=== PATIENT | female | born 1960 | race Caucasian/White ===

== ENCOUNTER 2016-04-08 08:04 | Day surgery (SDC) | payer BC ==
[2016-04-04 08:14] VITALS: BMI 22.3
[~2016-04-08 08:04] MED LIST: LACTATED RINGERS 1,000 ML IV SCH
[2016-04-08 08:30] VITALS: RESP 18; TEMP 97.7
[2016-04-08] MEDS ORDERED: LACTATED RINGERS 1,000 ML IV ONE (08:30)
[2016-04-08] MEDS ORDERED: LIDOCAINE 1% 20 ML VIAL (10MG/ML) FOR IV START INTRADERMA ONE (08:30)
[2016-04-08] MEDS ORDERED: LIDOCAINE 1% INJ 10MG/ML (20 ML MDV) ONE (08:55)
[2016-04-08] MEDS ORDERED: PROPOFOL 10 MG/ML 20 ML VIAL IV ONE (08:55)
--- NOTE | 2016-04-08 09:21 | P.PCN ---
Date of Procedure: 04/08/16 Preoperative Diagnosis: Constipation Postoperative Diagnosis: Tortuous redundant sigmoid colon, internal hemorrhoids Procedure(s) Performed: Colonoscopy Anesthesia: MAC Surgeon: Leyla Weiss Estimated Blood Loss (ml): 0 IV fluids (ml): 400 Pathology: none sent Condition: stable Disposition: PACU Indications for Procedure: Constipation, last scope approximately 11 years ago Operative Findings: Tortuous sigmoid colon, internal hemorrhoids, possible beginning of some small diverticuli Description of Procedure: Patient was taken to the endoscopy suite and following sedation rectal exam was performed patient was noted to have good sphincter tone no masses. Colonoscope was passed through the anus into the rectum was passed up through the sigmoid colon up to splenic flexure transverse colon hepatic colon right colon down to the area of the cecum. The scope was withdrawn being careful to evaluate the mucosa. Approximately 8 minutes were taken to withdraw the scope from the cecum to the rectum. No lesions of concern were noted in the cecum or right colon. No lesions of concern were noted in the transverse colon. No lesions of concern were noted in the left colon. The sigmoid colon was tortuous and redundant. Possible beginning of some small diverticuli were noted. The scope was withdrawn into the rectum where it was retroflexed internal hemorrhoids identified. Impression/plan: 1. Internal hemorrhoids 2. Tortuous redundant sigmoid colon 3. Possible beginning of some small diverticuli Plan: 1. Conservative management line 2. Repeat scope in 10 years
--- NOTE | 2016-04-08 09:21 | P.DS ---
Providers Attending physician: Leyla Weiss Primary care physician: Hazel Parker Plan - Discharge Summary Discharge Medication List Aspirin [Adult Low Dose Aspirin EC] 81 mg PO DAILY 03/15/15 [History] Ibuprofen [Motrin] 800 mg PO DAILY PRN 03/15/15 [History] LORazepam [Ativan] 0.5 mg PO BID 03/15/15 [History] Levothyroxine Sodium [Levoxyl] 150 mcg PO DAILY 03/15/15 [History] lamoTRIgine [LaMICtal] 25 mg PO QID 03/15/15 [History] Atorvastatin [Lipitor] 20 mg PO DAILY 04/04/16 [History] Multivitamins, Thera [Multivitamin] 1 tab PO DAILY 04/04/16 [History] Activity/Diet/Wound Care/Special Instructions: Repeat scope in 10 years unless patient has symptoms of something before Discharge Disposition: HOME SELF-CARE
[2016-04-08 09:44] VITALS: BP 109/71; PULSE 59
== END 2016-04-08 10:04 | disposition home or self-care (01) ==
LOC: ORWHC2ENDO 08:04
PROVIDERS: ATTEND Surgery
DX: Q43.8 Other specified congenital malformations of intestine (principal); K64.8 Other hemorrhoids; E03.9 Hypothyroidism, unspecified; E78.5 Hyperlipidemia, unspecified; G43.909 Migraine, unspecified, not intractable, without status migrainosus; F41.9 Anxiety disorder, unspecified; Z79.1 Long term (current) use of non-steroidal anti-inflammatories (NSAID); Z79.82 Long term (current) use of aspirin; Z79.899 Other long term (current) drug therapy
CPT/HCPCS: 45378; J2001; J2704; 99153

== ENCOUNTER → 2017-02-23 | Outpatient (CLI) | payer OTHER ==
--- NOTE | 2017-02-25 10:08 | MM ---
Reason for exam: screening (asymptomatic). Last mammogram was performed 1 year ago. History: Patient is postmenopausal and has history of other cancer at age 54. Physical Findings: A clinical breast exam by your physician is recommended on an annual basis and results should be correlated with mammographic findings. MG Screening Mammo w CAD Bilateral CC and MLO view(s) were taken. Prior study comparison: March 06, 2016, bilateral MG screening mammo w CAD. March 03, 2015, bilateral MG screening mammo w CAD. The breast tissue is heterogeneously dense. This may lower the sensitivity of mammography. No significant changes when compared with prior studies. ASSESSMENT: Negative, BI-RAD 1 RECOMMENDATION: Routine screening mammogram of both breasts in 1 year.
== END | disposition home or self-care (01) ==
LOC: RADMAMWWP 09:10
PROVIDERS: ATTEND Obstetrics & Gynecology
DX: Z12.31 Encounter for screening mammogram for malignant neoplasm of breast (principal)

== ENCOUNTER → 2017-12-04 | Outpatient (CLI) | payer OTHER ==
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
== END | disposition home or self-care (01) ==
LOC: NEUROMAIN 07:49
PROVIDERS: ATTEND Internal Medicine
DX: R56.9 Unspecified convulsions (principal)
CPT/HCPCS: 95819

== ENCOUNTER → 2018-03-16 | Outpatient (CLI) | payer OTHER ==
--- NOTE | 2018-03-16 15:50 | BD ---
EXAMINATION TYPE: Axial Bone Density DATE OF EXAM: 03/16/2018 COMPARISON: NONE CLINICAL HISTORY: Osteoporosis screening. Postmenopausal female. Height: 5'8 Weight: 159 FRAX RISK QUESTIONS: Secondary Osteoporosis: 3. Menopause before 45: y RISK FACTORS HISTORY OF: Postmenopausal woman: y MEDICATIONS: Thyroid Medications: Which medication: Levothyroxine How Lon years Additional Medications: anxiety, anti seizure Additional History: EXAM MEASUREMENTS: Bone mineral densitometry was performed using the MPSTOR System. Bone mineral density as measured about the Lumbar spine is: ----- L1-L4(G/cm2): 1.225 T Score Values are as follows: ----- L2: -0.6 ----- L3: -0.4 ----- L4: 2.3 ----- L1-L4:0.4 Bone mineral density about the R hip (g/cm2): 1.024 Bone mineral density about the L hip (g/cm2): 1.017 T Score values are as follows: -----R Neck: -0.1 -----L Neck: -0.2 -----R Total: 0.6 -----L Total:0.5 IMPRESSION: Normal (Values between +1 and -1 indicate normal bone mass). Consider repeating this study in 5 year s or sooner if there is some new clinical indication. NOTE: T-SCORE=SD OF THE YOUNG ADULT MEAN.
--- NOTE | 2018-03-17 12:40 | MM ---
Reason for exam: screening (asymptomatic). Last mammogram was performed 1 year and 1 month ago. History: Patient is postmenopausal and has history of other cancer at age 54. Physical Findings: A clinical breast exam by your physician is recommended on an annual basis and results should be correlated with mammographic findings. MG Screening Mammo w CAD Bilateral CC and MLO view(s) were taken. Prior study comparison: February 23, 2017, bilateral MG screening mammo w CAD. March 06, 2016, bilateral MG screening mammo w CAD. The breast tissue is heterogeneously dense. This may lower the sensitivity of mammography. Finding: There are typically benign round, regional calcifications in the left breast. There is no discrete abnormality. Increase in number of calcifications since February 23, 2017 and March 06, 2016. ASSESSMENT: Benign, BI-RAD 2 RECOMMENDATION: Routine screening mammogram of both breasts in 1 year.
== END | disposition home or self-care (01) ==
LOC: RADMAMWWP 14:45
PROVIDERS: ATTEND Obstetrics & Gynecology
DX: Z12.31 Encounter for screening mammogram for malignant neoplasm of breast (principal); Z13.820 Encounter for screening for osteoporosis
CPT/HCPCS: 77067; 77080

== ENCOUNTER → 2019-03-17 | Outpatient (CLI) | payer OTHER ==
--- NOTE | 2019-03-17 14:12 | MM ---
Reason for exam: screening (asymptomatic). Last mammogram was performed 1 year ago. History: Patient is postmenopausal and has history of other cancer at age 54. Physical Findings: A clinical breast exam by your physician is recommended on an annual basis and results should be correlated with mammographic findings. MG Screening Mammo w CAD Bilateral CC and MLO view(s) were taken. Prior study comparison: March 16, 2018, bilateral MG screening mammo w CAD. February 23, 2017, bilateral MG screening mammo w CAD. The breast tissue is heterogeneously dense. This may lower the sensitivity of mammography. No suspicious abnormality. No significant changes when compared with prior studies. ASSESSMENT: Negative, BI-RAD 1 RECOMMENDATION: Routine screening mammogram of both breasts in 1 year.
== END | disposition home or self-care (01) ==
LOC: RADMAMWWP 06:49
PROVIDERS: ATTEND Obstetrics & Gynecology
DX: Z12.31 Encounter for screening mammogram for malignant neoplasm of breast (principal)
CPT/HCPCS: 77067

== ENCOUNTER → 2020-05-30 | Outpatient (CLI) | payer OTHER ==
--- NOTE | 2020-05-31 13:35 | MM ---
Reason for exam: screening (asymptomatic). Last mammogram was performed 1 year and 2 months ago. History: Patient is postmenopausal and has history of other cancer at age 54. Physical Findings: A clinical breast exam by your physician is recommended on an annual basis and results should be correlated with mammographic findings. MG Screening Mammo w CAD Bilateral CC and MLO view(s) were taken. Prior study comparison: March 17, 2019, bilateral MG screening mammo w CAD. March 16, 2018, bilateral MG screening mammo w CAD. The breast tissue is heterogeneously dense. This may lower the sensitivity of mammography. There are benign appearing round calcifications bilaterally. There is no discrete abnormality. ASSESSMENT: Benign, BI-RAD 2 RECOMMENDATION: Routine screening mammogram of both breasts in 1 year.
== END ==
LOC: RADMAMWWP 14:42
PROVIDERS: ATTEND Obstetrics & Gynecology
DX: Z12.31 Encounter for screening mammogram for malignant neoplasm of breast (principal); Z78.0 Asymptomatic menopausal state
CPT/HCPCS: 77067

== ENCOUNTER → 2021-06-13 | Outpatient (CLI) | payer OTHER ==
--- NOTE | 2021-06-18 12:15 | MM ---
Reason for exam: screening (asymptomatic). Last mammogram was performed 1 year ago. History: Patient is postmenopausal and has history of other cancer at age 54. Physical Findings: A clinical breast exam by your physician is recommended on an annual basis and results should be correlated with mammographic findings. MG 3D Screening Mammo W/Cad Bilateral CC and MLO view(s) were taken. Prior study comparison: May 30, 2020, bilateral MG screening mammo w CAD. March 17, 2019, bilateral MG screening mammo w CAD. The breast tissue is heterogeneously dense. This may lower the sensitivity of mammography. Benign round calcifications medial left breast are unchanged. No significant changes when compared with prior studies. ASSESSMENT: Benign, BI-RAD 2 RECOMMENDATION: Routine screening mammogram of both breasts in 1 year.
== END | disposition home or self-care (01) ==
LOC: RADMAMWWP 16:36
PROVIDERS: ATTEND Obstetrics & Gynecology
DX: Z12.31 Encounter for screening mammogram for malignant neoplasm of breast (principal)
CPT/HCPCS: 77063; 77067

== ENCOUNTER → 2022-06-17 | Outpatient (CLI) | payer OTHER ==
--- NOTE | 2022-06-17 15:16 | BD ---
EXAMINATION TYPE: Axial Bone Density DATE OF EXAM: 06/17/2022 CLINICAL HISTORY: 62 years old Female. ICD-10 CODE: M8588 OTHER DISORDER OF BONE Height: 67 Weight: FRAX RISK QUESTIONS: Alcohol (3 or more units per day): no Family History (Parent hip fracture): no Glucocorticoids (More than 3mos): no (Ex: prednisone, prednisolone, methylprednisolone, dexamethasone, and hydrocortisone). History of Fracture in Adulthood: no Secondary Osteoporosis: 1. Type 1 Diabetes: no 2. Hyperthyroidism: no 3. Menopause before 45: no 4. Malnutrition: no 5. Chronic liver disease: no Rheumatoid Arthritis: no Current Tobacco Use: no RISK FACTORS HISTORY OF: Surgery to Spine/Hip(right/left)/Wrist (right/left): no Family History of Osteoporosis: no Active: yes Diet low in dairy products/other sources of calcium: no Postmenopausal woman: yes Lost more than 2 inches in height since high school: no MEDICATIONS: Thyroid Medications: levothyroxine How Lon years Additional History: EXAM MEASUREMENTS: Bone mineral densitometry was performed using the INAPPIN System. Bone mineral density as measured about the Lumbar spine is: ----- L1-L4(G/cm2): 1.159 T Score Values are as follows: ----- L1: -1.1 ----- L2: -1.4 ----- L3: -1.3 ----- L4: 2.3 ----- L1-L4: -0.2 Z Score Values are as follows: ----- L1: 0.1 ----- L2: -0.3 ----- L3: -0.1 ----- L4: 3.4 ----- L1-L4: 1.0 Bone mineral density has: decreased -5.4 % since study of: 03.16.2018 Bone mineral density about the R hip (g/cm2): 1.063 Bone mineral density about the L hip (g/cm2): 1.050 T Score values are as follows: -----R Neck: -0.3 -----L Neck: -0.5 -----R Total: 0.4 -----L Total: 0.3 Z Score values are as follows: -----R Neck: 0.8 -----L Neck: 0.6 -----R Total: 1.3 -----L Total: 1.2 Bone mineral density has: decreased -2.2 % since study of: 2018 FRAX%s: The graph provided illustrates a 7.2% chance for a major osteoporotic fx and a 0.3% chance fo r the hips probability for fx in 10 years time. IMPRESSION: Normal (Values between +1 and -1 indicate normal bone mass). Consider repeating this study in 5 year s or sooner if there is some new clinical indication. NOTE: T-SCORE=SD OF THE YOUNG ADULT MEAN.
--- NOTE | 2022-06-18 09:17 | MM ---
Reason for Exam: Screening (asymptomatic). Last screening mammogram was performed 12 month(s) ago. Patient History: Menarche at age 11. First Full-Term at age 18. Postmenopausal. Other cancer, age 54. Risk Values: Padmini 5 year model risk: 1.4%. NCI Lifetime model risk: 5.8%. Prior Study Comparison: 03/06/2016 Bilateral Screening Mammogram, [facility]. 02/23/2017 Bilateral Screening Mammogram, [facility]. 03/16/2018 Bilateral Screening Mammogram, [facility]. 03/17/2019 Bilateral Screening Mammogram, [facility]. 05/30/2020 Bilateral Screening Mammogram, [facility]. 06/13/2021 Bilateral Screening Mammogram, [facility]. Tissue Density: The breast tissue is heterogeneously dense. This may lower the sensitivity of mammography. Findings: Analyzed By CAD. There are benign-appearing rounded calcifications redemonstrated scattered throughout the left breast. There is no suspicious new group of microcalcifications or new suspicious mass in either breast. Overall Assessment: Benign, BI-RAD 2 Management: Screening Mammogram of both breasts in 1 year. A clinical breast exam by your physician is recommended on an annual basis and results should be correlated with mammographic findings. Electronically signed and approved by: Shay Starks M.D.
== END | disposition home or self-care (01) ==
LOC: RADMAMWWP 13:38
PROVIDERS: ATTEND Obstetrics & Gynecology
DX: Z12.31 Encounter for screening mammogram for malignant neoplasm of breast (principal); M85.88 Other specified disorders of bone density and structure, other site; Z78.0 Asymptomatic menopausal state
CPT/HCPCS: 77063; 77067; 77080

== ENCOUNTER → 2023-07-15 | Outpatient (CLI) | payer MEDICARE ==
--- NOTE | 2023-07-15 12:29 | MM ---
Reason for Exam: Screening (asymptomatic). Last mammogram was performed 1 year(s) and 1 month(s) ago. Patient History: Menarche at age 11. First Full-Term at age 18. Postmenopausal. Other cancer, age 54. Risk Values: Padmini 5 year model risk: 1.5%. NCI Lifetime model risk: 5.6%. Prior Study Comparison: 05/30/2020 Bilateral Screening Mammogram, [facility]. 06/13/2021 Bilateral Screening Mammogram, [facility]. 06/17/2022 Bilateral MG 3D screening mammo w/cad, [facility]. Tissue Density: The breasts are heterogeneously dense, which may obscure small masses. Findings: Analyzed By CAD. The pattern is symmetrical. Pattern is stable. Benign calcifications are present bilaterally. No significant interval change is evident. No suspicious groups of microcalcifications, spiculated or lobular masses, architectural distortion or other secondary signs of malignancy are mammographically apparent. Overall Assessment: Benign, BI-RAD 2 Management: Screening Mammogram of both breasts in 1 year. A negative mammogram report should not preclude additional follow up of suspicious palpable abnormalities. Patient should continue monthly self breast exam. A clinical breast exam by your physician is recommended on an annual basis and results should be correlated with mammographic findings. Note on Padmini scores and lifetime risk: 1. A Padmini score greater than 3% is considered moderate risk. If this is the case, consider specialist referral to assess eligibility for a risk reducing agent. 2. If overall lifetime risk for the development of breast cancer is 20% or higher, the patient may qualify for future screening with alternating mammogram and breast MRI. Electronically signed and approved by: Dion Yi D.O. Radiologis
== END | disposition home or self-care (01) ==
LOC: RADMAMWWP 09:51
PROVIDERS: ATTEND Internal Medicine
DX: Z12.31 Encounter for screening mammogram for malignant neoplasm of breast (principal); Z78.0 Asymptomatic menopausal state
CPT/HCPCS: 77067

== ENCOUNTER 2024-06-09 07:55 | Day surgery (SDC) | payer MEDICARE ==
[2024-06-08 11:06] VITALS: BMI 26.1
[2024-06-09] MEDS ORDERED: LIDOCAINE 1% (10MG/ML) FOR IV START INTRADERMA PRN (08:17)
[2024-06-09 08:28] VITALS: RESP 16; TEMP 97.5
[2024-06-09] MEDS: LACTATED RINGERS 1,000 ML IV SCH (08:36)
--- NOTE | 2024-06-09 08:39 | P.GSHP ---
History of Present Illness H&P Date: 06/09/24 CHIEF COMPLAINT: Dysphagia and colon screen HISTORY OF PRESENT ILLNESS: The patient is a 64-year-old male who presents with dysphagia and need for colon screen. Upper and lower endoscopy were offered for further evaluation and management. PAST MEDICAL HISTORY: Please see list. PAST SURGICAL HISTORY: Please see list. MEDICATIONS: Please see list. ALLERGIES: Please see list. SOCIAL HISTORY: No illicit drug use FAMILY HISTORY: No reports of Crohn disease or ulcerative colitis. REVIEW OF ORGAN SYSTEMS: CONSTITUTIONAL: No reports of fevers or chills. GI: Denies any blood in stools or constipation. PHYSICAL EXAM: VITAL SIGNS: Stable GENERAL: Well-developed pleasant in no acute distress. HEENT: No scleral icterus. Extraocular movements grossly intact. Moist buccal mucosa. NECK: Supple without lymphadenopathy. CHEST: Unlabored respirations. Equal bilateral excursions. CARDIOVASCULAR: Regular rate and rhythm. Distal 2+ pulses. ABDOMEN: Soft, nondistended. MUSCULOSKELETAL: No clubbing, cyanosis, or edema. ASSESSMENT: 1. Dysphagia 2. Colon screen. PLAN: 1. Recommend proceeding with an upper and lower endoscopy Past Medical History Past Medical History: Cancer, GERD/Reflux, Hyperlipidemia, Thyroid Disorder Additional Past Medical History / Comment(s): constipated with pain lower rt abdominal area, migraines, hx skin cancer History of Any Multi-Drug Resistant Organisms: None Reported Additional Past Surgical History / Comment(s): skin cancer removed left arm and back, eyelid surgery, stoney cataract Past Anesthesia/Blood Transfusion Reactions: No Reported Reaction Additional Past Anesthesia/Blood Transfusion Reaction / Comment(s): no hx blood transfusion Smoking Status: Never smoker - Past Family History Mother Family Medical History: Cancer Additional Family Medical History / Comment(s): lymphoma Medications and Allergies Home Medications Medication Instructions Recorded Confirmed Type Aspirin [Adult Low Dose Aspirin EC] 81 mg PO DAILY 03/15/15 06/09/24 History Ibuprofen [Motrin] 800 mg PO DAILY PRN 03/15/15 06/09/24 History LORazepam [Ativan] 1 mg PO BID 03/15/15 06/09/24 History Levothyroxine Sodium [Levoxyl] 125 mcg PO QAM 03/15/15 06/09/24 History lamoTRIgine [LaMICtal] 100 mg PO BID 03/15/15 06/09/24 History Multivitamins, Thera [Multivitamin] 1 tab PO DAILY 04/04/16 06/09/24 History Baclofen [Lioresal] 10 mg PO HS 06/08/24 06/09/24 History Sertraline HCl [Zoloft] 50 mg PO QAM 06/08/24 06/09/24 History Allergies Allergy/AdvReac Type Severity Reaction Status Date / Time No Known Allergies Allergy Verified 06/08/24 10:54 Surgical - Exam Vital Signs Temp Pulse Resp BP Pulse Ox 97.5 F L 82 16 125/65 98 06/09/24 08:20 06/09/24 08:20 06/09/24 08:20 06/09/24 08:20 06/09/24 08:20
[2024-06-09] MEDS ORDERED: PROPOFOL 10 MG/ML 20 ML VIAL IV ONE (08:45)
--- NOTE | 2024-06-09 08:49 | P.HPADDEND ---
H&P Addendum H&P Addendum Date: 06/09/24 Patient currently denies dysphagia. Will proceed with colonoscopy only.
[2024-06-09 09:23] VITALS: BP 103/69; PULSE 61
--- NOTE | 2024-06-09 09:42 | P.PCN ---
Date of Procedure: 06/09/24 Description of Procedure: PREOPERATIVE DIAGNOSIS: Colonoscopy screening. POSTOPERATIVE DIAGNOSIS: Colonoscopy screening. Diverticulosis, scattered. OPERATION: Colonoscopy to the cecum, ileocecal valve and appendiceal orifice. SURGEON: Marixa Perez MD. ANESTHESIA: MAC. INDICATIONS: The patient is a 64-year-old female who presents for colonoscopy screening. Benefits and risks were described and informed consent was obtained. DESCRIPTION OF PROCEDURE: The patient had undergone GoLytely prep and lactulose. The patient had been brought into the operating room and laid in the left lateral decubitus position. After adequate intravenous sedation, the rectum was examined with 2% lidocaine jelly. No external hemorrhoids were encountered. The rectal tone was within normal limits. No lesions were palpated in the rectal vault. An Olympus colonoscope was advanced until the cecum, ileocecal valve and appendiceal orifice were clearly viewed. The prep was fair. Few scattered diverticulosis was encountered. No colonic polyps were found. No evidence of focal colitis was found. Retroflexion of the scope demonstrated grade 2 internal hemorrhoids without active bleeding or inflammation. The colon was desufflated. The patient had tolerated the procedure well. Withdrawal time was over 6 minutes. FINDINGS: Aronchick preparation quality scale 3 (1-5) Internal hemorrhoids, grade 2 External prolapsed hemorrhoids, grade 2 No arteriovenous malformations. No adenomatous polyps. No focal colitis. RECOMMENDATIONS: Lower endoscopy in 5 years2029 Plan - Discharge Summary Discharge Rx Participant: No New Discharge Prescriptions: Continue LORazepam [Ativan] 1 mg PO BID lamoTRIgine [LaMICtal] 100 mg PO BID Levothyroxine Sodium [Levoxyl] 125 mcg PO QAM Ibuprofen [Motrin] 800 mg PO DAILY PRN PRN Reason: Pain Aspirin [Adult Low Dose Aspirin EC] 81 mg PO DAILY Multivitamins, Thera [Multivitamin (formulary)] 1 tab PO DAILY Sertraline HCl [Zoloft] 50 mg PO QAM Baclofen [Lioresal] 10 mg PO HS Discharge Medication List Aspirin [Adult Low Dose Aspirin EC] 81 mg PO DAILY 03/15/15 [History] Ibuprofen [Motrin] 800 mg PO DAILY PRN 03/15/15 [History] LORazepam [Ativan] 1 mg PO BID 03/15/15 [History] Levothyroxine Sodium [Levoxyl] 125 mcg PO QAM 03/15/15 [History] lamoTRIgine [LaMICtal] 100 mg PO BID 03/15/15 [History] Multivitamins, Thera [Multivitamin (formulary)] 1 tab PO DAILY 04/04/16 [History] Baclofen [Lioresal] 10 mg PO HS 06/08/24 [History] Sertraline HCl [Zoloft] 50 mg PO QAM 06/08/24 [History] Follow up Appointment(s)/Referral(s): Marixa Perez MD [STAFF PHYSICIAN] - As Needed Patient Instructions/Handouts: Constipation (DC), Diverticulosis Diet (GEN) Activity/Diet/Wound Care/Special Instructions: Repeat colonoscopy 5 years, 2030 Discharge Disposition: HOME SELF-CARE
== END 2024-06-09 09:58 | disposition home or self-care (01) ==
LOC: ORWHC2ENDO 07:55
PROVIDERS: ATTEND Surgery Plastic and Reconstructive Surgery
DX: Z12.11 Encounter for screening for malignant neoplasm of colon (principal); K57.30 Diverticulosis of large intestine without perforation or abscess without bleeding; K21.9 Gastro-esophageal reflux disease without esophagitis; K64.1 Second degree hemorrhoids; E78.5 Hyperlipidemia, unspecified; E07.9 Disorder of thyroid, unspecified; F41.9 Anxiety disorder, unspecified; G43.909 Migraine, unspecified, not intractable, without status migrainosus; Z85.828 Personal history of other malignant neoplasm of skin; Z79.890 Hormone replacement therapy; Z79.1 Long term (current) use of non-steroidal anti-inflammatories (NSAID); Z79.82 Long term (current) use of aspirin; Z79.899 Other long term (current) drug therapy
CPT/HCPCS: J2704; G0121; 45378

== ENCOUNTER → 2024-08-19 | Outpatient (CLI) | payer MEDICARE ==
--- NOTE | 2024-08-19 12:40 | MM ---
Reason for Exam: Screening (asymptomatic). Last mammogram was performed 1 year(s) and 1 month(s) ago. Patient History: Menarche at age 11. First Full-Term at age 18. Postmenopausal. Other cancer, age 54. Risk Values: Padmini 5 year model risk: 1.5%. NCI Lifetime model risk: 5.4%. Prior Study Comparison: 03/16/2018 Bilateral Screening Mammogram, [facility]. 03/17/2019 Bilateral Screening Mammogram, [facility]. 05/30/2020 Bilateral Screening Mammogram, [facility]. 06/13/2021 Bilateral Screening Mammogram, [facility]. 06/17/2022 Bilateral MG 3D screening mammo w/cad, [facility]. 07/15/2023 Bilateral MG screening mammo w CAD, [facility]. Tissue Density: The breasts are heterogeneously dense, which may obscure small masses. Findings: Analyzed By CAD. Right breast: There is no suspicious group of microcalcifications or new suspicious mass. Left breast: There is no suspicious group of microcalcifications or new suspicious mass. Overall Assessment: Negative, BI-RAD 1 Management: Screening Mammogram of both breasts in [address] [facility] will attempt to contact patient to return for supplemental views and ultrasound if indicated. Patient should continue monthly self-breast exams. A clinical breast exam by your physician is recommended on an annual basis. This exam should not preclude additional follow-up of suspicious palpable abnormalities. Note on Padmini scores and lifetime risk: 1. A Padmini score greater than 3% is considered moderate risk. If this is the case, consider specialist referral to assess eligibility for a risk reducing agent. 2. If overall lifetime risk for the development of breast cancer is 20% or higher, the patient may qualify for future screening with alternating mammogram and breast MRI. [facility], , 08/19/2024 12:38 PM. Electronically signed and approved by: Donovan Faulkner DO
== END | disposition home or self-care (01) ==
LOC: RADMAMWWP 08:44
PROVIDERS: ATTEND Internal Medicine
DX: Z12.31 Encounter for screening mammogram for malignant neoplasm of breast (principal); R92.333 Mammographic heterogeneous density, bilateral breasts; Z78.0 Asymptomatic menopausal state
CPT/HCPCS: 77063; 77067